=== PATIENT | male | born 1955 | race Caucasian/White ===

== ENCOUNTER 2025-04-13 06:49 | Day surgery (SDC) | payer MEDICARE, SELFPAY | END 2025-04-13 09:30 | disposition home or self-care (01) | LOC: CATH 06:49 | PROVIDERS: ATTENDING PHYSICIAN Internal Medicine Interventional Cardiology; FAMILY PHYSICIAN Internal Medicine; OTHER PHYSICIAN Internal Medicine Cardiovascular Disease | DX: I48.19 Other persistent atrial fibrillation (principal); Z79.01 Long term (current) use of anticoagulants; I10 Essential (primary) hypertension; E78.00 Pure hypercholesterolemia, unspecified; Z86.73 Personal history of transient ischemic attack (TIA), and cerebral infarction without residual deficits | CPT/HCPCS: 92960; 93005 ==

== ENCOUNTER → 2025-05-10 16:00 | Outpatient (REF) | payer MEDICARE, SELFPAY | LOC: DHSLP 16:00 | PROVIDERS: ATTENDING PHYSICIAN Internal Medicine Critical Care Medicine; FAMILY PHYSICIAN Internal Medicine | DX: G47.33 Obstructive sleep apnea (adult) (pediatric) (principal); R09.02 Hypoxemia | CPT/HCPCS: 95800 ==